=== PATIENT | female | born 1955 | race Caucasian/White ===

== ENCOUNTER → 2018-12-25 10:08 | Outpatient (CLI) | payer BC, SELFPAY ==
--- NOTE | 2018-12-25 10:11 | MM_ITS ---
MM Dig screening mamm BI w/CAD ORDERING PHYSICIAN : Sarah Ordoñez APRN PATIENT AGE: 63 years GENDER: Female COMPARISON: . Also July 19, 2017 stereotactic biopsy. Bilateral screening mammogram studies from May 17, 2017 with additional diagnostic views June 02, 2017. August 13, 2000 mammogram from [facility] INDICATION: ITS routine screening mammogram. No hormones. No new complaints. Previous stereotactic biopsies bilaterally. Previous cyst aspiration Family history. Sister with breast cancer age 67 TECHNIQUE: Standard CC and MLO images were obtained. R2 CAD reviewed. Additional axillary cc view bilateral FINDINGS: . Moderately dense slightly nodular character the breast mild heterogeneous character bilaterally with similar overall architecture. Mammography is slightly limited breast this character. RIGHT BREAST: Studies dating back to 2007 show numerous small calcifications at the superior right breast. Some very tiny calcifications were sampled with stereotactic biopsy 07/19/2017-with metallic clip from such at peripheral upper outer quadrant.-That biopsy revealed stromal fibrosis with microcalcifications. The others small dense fairly punctate calcifications at deep to the area sampled remained basically stable since that time with only scant if any increased density of these most likely benign punctate forms. This area Labeled A Area Labeled B.. Small benign stable appearing punctate calcifications, deep breast just medial to area A Calcifications at B best seen on cc views where as projected over the superior breast and area A on MLO view Area labeled C. On today's cc views at the deep deep breast towards 12:00 there is a reflection of some small faint calcifications. Again most likely this reflects benign process. These calcifications were noted in 2017 very slightly more evident on today's study specifically today's cc views. There seems to be a few additional tiny calcifications here. The again by far this most likely reflects benign process such esophagus history calcification with these calcifications do warrant additional magnification views to further evaluate. See joya images in PACS. LEFT BREAST: Previous stereotactic biopsy removed small grouping calcifications from lateral left breast--previously labeled X. Metallic MicroMark or here.. That biopsy was in 07/19/2017 and revealed fibroadenoma with microcalcifications. area labeled Y Stable area of dense overall benign-appearing calcifications deep breast labeled Y appear similar to the 2017 study with no significant change.. There is minimal nodularity here which appears stable as well...... however since the patient is returning, suggest spot views of this area to further evaluate and characterize these calcifications and this region. On coronal views minimal nodularity here on MLO view seem to dissipate on cc view and not of concern but if nodularity persists ultrasound may be warranted, after follow-up images reviewed ========IMPRESSION: The patient has numerous small benign calcifications at right breast > left , which create difficult mammogram evaluation ...... RIGHT BREAST ... Area labeled C warrants additional magnification spot views. Tiny calcifications are seen in 2 small adjacent groups seen here. They have been seen before but are slightly more evident today seen to have since slightly more numerous tiny calcifications on the cc view today Calcifications at AreaA & C appears stable with no new areas of concern. No previous biopsy at the far upper-outer quadrant right breast near [facility] ...... LEFT BREAST Fairly stable appearing grouping of calcifications deep breast labeled Y., However when Patient returns suggest magn
--- NOTE | 2018-12-25 10:12 | XR_ITS ---
XR DEXA axial skeleton HISTORY: ITS.REASON: OSTEOPOROSIS ORDERING PHYSICIAN: Sarah Ordoñez APRN PATIENT AGE: 63 years COMPARISON: None FINDINGS: The BMD measured at the Total Right femoral neck is 0.538 g/cm squared with a T score of -3.7. This is considered Osteoporotic according to the World Health Organization criteria. Fracture risk is High. Treatment is advised. IMPRESSION: Osteoporosis with high fracture risk. Treatment is advised. Suggest follow-up exam December 2019
== END ==
PROVIDERS: PCP Nurse Practitioner Family; Visit Provider Nurse Practitioner Family
DX: Z12.31 Encounter for screening mammogram for malignant neoplasm of breast (principal); M81.0 Age-related osteoporosis without current pathological fracture; Z13.820 Encounter for screening for osteoporosis
CPT/HCPCS: 77067; 77080

== ENCOUNTER → 2019-01-30 14:50 | Outpatient (CLI) | payer BC, SELFPAY ==
--- NOTE | 2019-01-30 14:55 | MM_ITS ---
MM Dig mamm BI DX w/CAD INDICATION: Follow-up abnormal screening study, microcalcifications ORDERING PHYSICIAN: Sarah Ordoñez APRN PATIENT AGE: 64 years COMPARISON: 12/25/2018, 06/02/2017, 05/17/2017 TECHNIQUE: Spot mag views are obtained of both breasts along ML views FINDINGS: There is very dense breast tissue bilaterally which could easily obscure an underlying breast lesion. Therefore, correlation with physical exam is of utmost importance. The calcifications previously identified in the deep central aspect of the left breast have a benign appearance. The calcifications labeled C on the screening mammogram are demonstrated.. These appear to be slightly increased in number with some pleomorphic calcifications. Other calcifications are stable. IMPRESSION: Mildly suspicious calcifications in the deep upper aspect of the right breast centrally in the posterior one third approximately 8 centimeters deep to the nipple.. Stereotactic biopsy suggested BI-RADS Category: 4 Suspicious Abnormality-Biopsy Considered RECOMMENDED FOLLOW-UP: BIO - BIOPSY RECOMMENDED (A letter has been sent to the patient regarding results of the study.)
== END ==
PROVIDERS: PCP Nurse Practitioner Family; Visit Provider Nurse Practitioner Family
DX: R92.8 Other abnormal and inconclusive findings on diagnostic imaging of breast (principal)
CPT/HCPCS: 77066

== ENCOUNTER → 2019-03-05 08:32 | Outpatient (CLI) | payer BC, SELFPAY ==
--- NOTE | 2019-03-05 09:00 | MM_ITS ---
MM stereotactic loc RT, MM clip placement RT ORDERING PHYSICIAN: Sarah Ordoñez APRN PATIENT AGE: 64 years Comparison: 01/30/2019 INDICATION: Abnormal mammogram with new right breast calcifications in the deep central aspect of the right breast superiorly. PROCEDURE: The patient was given 1 mg of Xanax, Lortab 5 mg, and analgesia and minor sedation. The patient was placed on the stereotactic table and the abnormality was localized in the most appropriate projection. The breast was prepped in the routine manner, with sterile prep and the overlying skin anesthetized. A 3 to 4 mm skin incision was performed and the 9 gauge Liquidus vacuum-assisted core biopsy needle was advanced to the region of the calcification. Pre- and post fire images were obtained. After adequate positioning relative to the calcifications was ensured, multiple biopsies were obtained in the region of the calcifications specifically. The core biopsies obtained were sent for specimen mammography. After the calcifications were indeed identified on the specimen mammogram, the procedure was terminated. A tiny titanium nonferromagnetic MicroMark was positioned through the mammotome needle into the biopsy site. Pathology: Focal atypical lobular hyperplasia. Fibrocystic changes with ductal microcalcifications. Postbiopsy mammogram: Very dense fibroglandular tissue once again noted. The previously noted suspicious calcifications in the deep upper aspect of the right breast are less numerous with focal biopsy changes at this region. A new clip is present in this area as well. IMPRESSION: Successful stereotactic biopsy of the right breast. Pathology is remarkable for focal atypical lobular hyperplasia. Excisional biopsy therefore suggested. Recommendations: Excisional biopsy with hook wire placement
== END ==
PROVIDERS: PCP Family Medicine; Visit Provider Nurse Practitioner Family
DX: R92.8 Other abnormal and inconclusive findings on diagnostic imaging of breast (principal)
CPT/HCPCS: 19081; 77065

== ENCOUNTER → 2021-01-28 08:05 | Outpatient (CLI) | payer MEDICARE, OTHER, SELFPAY ==
[2021-01-28 08:52] LABS: Basophils # 0.1 K/mm3 (0-0.2); Basophils % 1.2 % (0.1-2.0); Eosinophils # 0.4 K/mm3 (0.0-0.4); Eosinophils % 4.3 % (0.1-12.0); Hemoglobin 15.9 g/dL (12.2-16.2); Lymphocytes # 2.5 K/mm3 (0.7-4.5); Lymphocytes % 30.6 % (10-50); Mean Corpuscular HGB Conc 33.1 g/dL (31.8-35.4); Mean Corpuscular Hemoglobin 30.5 pg (27.0-31.2); Mean Corpuscular Volume 92.2 fl (81-99); Mean Platelet Volume 7.9 fl (7.4-10.4); Monocytes # 0.4 K/mm3 (0.1-1.0); Monocytes % 5.2 % (1.7-9.3); Neutrophils # 4.7 K/mm3 (1.8-7.8); Neutrophils % 58.6 % (37.0-80.0); Platelet Count 242 K/mm3 (142-424); Red Blood Count 5.21 M/mm3 (4.20-5.40); Red Cell Distribution Width 13.9 % (11.5-17.5)
[2021-01-28 09:05] LABS: Alanine Aminotransferase 19 U/L (12-78); Albumin Level 4.3 g/dl (3.5-5.0); Albumin/Globulin Ratio 1.7 (1.1-1.8); Alkaline Phosphatase 84 U/L (38-126); Aspartate Amino Transferase 24 U/L (14-36); Bilirubin,Total 0.7 mg/dl (0.2-1.3); Blood Urea Nitrogen 17 mg/dl (7-17); Calcium 9.4 mg/dl (8.4-10.2); Carbon Dioxide 28 mmol/L (22.0-30.0); Chloride 107 mmol/L (98-107); Chol/HDL Ratio 2.6 (1-3.5); Cholesterol 182 mg/dl (140-200); Estimated Glomerular Filt Rate 84 ml/min (>60); GFR (African American) 101 ML/MIN (>60); Globulin 2.6 g/dL (1.3-3.2); Glucose 110 mg/dl (74-100); HDL Cholesterol 70 mg/dl (40-60); Sodium 140 mmol/L (136-145); Total Protein,Serum 6.9 g/dl (6.3-8.2); Triglycerides 90 mg/dl (30-150); VLDL Cholesterol 18 mg/dL (0-40)
[2021-01-28 09:16] LABS: Direct LDL Cholesterol 90.74 mg/dL (100-129)
[2021-01-28 15:37] LABS: Hemoglobin A1C 5.5 % (4.0-6.0)
== END ==
PROVIDERS: Visit Provider Nurse Practitioner Family
DX: E78.5 Hyperlipidemia, unspecified (principal); M81.0 Age-related osteoporosis without current pathological fracture; Z13.1 Encounter for screening for diabetes mellitus; Z79.899 Other long term (current) drug therapy
CPT/HCPCS: 36415; 80053; 80061; 83036; 85025

== ENCOUNTER → 2021-02-02 10:31 | Outpatient (CLI) | payer MEDICARE, OTHER, SELFPAY ==
--- NOTE | 2021-02-02 10:37 | XR_ITS ---
PROCEDURE: XR DEXA AXIAL SKELETON CLINICAL HISTORY: OSTEOPOROSIS COMPARISON: CR DEXAAX XR DEXA axial skeleton from 12/25/2018 FINDINGS: The right hip BMD is 0.418 with a T-score of -3.9. The left hip BMD is 0.501 with a T-score of -3.6. The lumbar spine BMD is 0.693 with a T-score of -3.2. Previously the lowest bone density within the right femoral neck with a T-score -3.7 IMPRESSION: This patient is considered osteoporotic according to the World Health Organization criteria. Fracture risk is high. Treatment is advised. Based on these results a follow-up exam is recommended in 1 year. Dictated by: Adrian Xiong MD 02/03/2021 05:32 Adrian Xiong MD in [place] 02/03/2021 05:32
== END ==
PROVIDERS: PCP Family Medicine; Visit Provider Nurse Practitioner Family
DX: M81.0 Age-related osteoporosis without current pathological fracture (principal)
CPT/HCPCS: 77080

== ENCOUNTER 2021-03-22 10:50 | Day surgery (SDC) | payer MEDICARE, OTHER, SELFPAY ==
[2021-03-22 10:37] LABS: Coronavirus 19, PCR Not Detected (NotDetected); Influenza A, PCR Not Detected (NotDetected); Influenza B, PCR Not Detected (NotDetected)
[2021-03-22 12:18] VITALS: BP 139/94; PULSE 90; RESP 18; TEMP 37.4; O2SAT 98; BMI 21.4
--- NOTE | 2021-03-22 12:55 | P.PN_ITS ---
[facility] Anesthesia Checklist - Patient Identification Patient Identification: Arm Band - Structural Data Admitted From: Home Planned Operative Procedure/s: Colonoscopy Consent for Planned Operative Procedure(s) Verified: Yes - NPO Status Verified Time NPO: 00:00 - Additional verifications Anesthesia Reactions: No Hx Blood Transfusions: No Blood Transfusion Reaction: No - Airway Assessment C-Spine Mobility Assessed: Yes TMJ Mobility Assessed: Yes Dentition: Dentures-good fit - Neurological Assessment Level of Consciousness: Awake Hx Seizures: No Numbness or tingling in extremities: No - Anesthesia Plan Anesthesia Risk discussed: Yes Anesthesia Plan: Verified ASA Class: II Anesthesia Type: MAC [facility] History I have reviewed the patient's past medical history: Yes Medical History: Reports:: Hyperlipidemia Denies:: Cancer, Diabetes Mellitus Type 1, Diabetes Mellitus Type 2, Internal Pacemaker, Lung Disease, MRSA, Seizures *Have you ever received a pneumonia vaccine?: Yes *Have you received a flu vaccine this season?: Yes Other Medical History: Denies: Blood Transfusion Reaction Anesthesia experience/problems:: None Laterality Cases: Bilateral: Lumpectomy Other Surgeries: No: Pacemaker Amputation: No Fractures: No - *Social History Last grade of school completed: Some college Smoking Status: Current every day smoker Tobacco Type: cigarettes # Packs/Day (cigarettes): 2 Alcohol Intake: never Substance Use Type: denies use *Occupational Status:: employed Housing: house Household Members: spouse *Travel in the last 8 weeks: Inside the [facility] Family Hx:: Cancer, Coronary Artery Disease, Diabetes, Heart Attack, Hyperlipidemia, Hypertension, Stroke
--- NOTE | 2021-03-22 13:42 | P.PCN_ITS ---
[facility] Procedure Note Procedure Note:: Colonoscopy Procedure Report: Colonoscopy with cold snare polypectomy Endoscopist: Surendra Gonzales II, MD Referring physician: SHARMAINE Roldan Date of Procedure: March 22, 2021 Equipment: Olympus 190 variable stiffness pediatric colonoscope Sedation: MAC sedation Indication: Mrs. Dickson is a 66-year-old female who underwent screening colonoscopy on December 28, 2018. She had multiple large adenomatous polyps (large 27 mm pedunculated rectosigmoid polyp as well as other multiple medium and large tubular adenomas (9 mm, 11 mm, 16mm and 27 mm)) which were removed. The patient reports no abdominal pain, weight loss, change in her bowel habits or rectal bleeding. She does state that her paternal uncle had colon cancer. Procedure: Prior to the procedure, a history and physical exam was performed, and patient's medications and allergies were reviewed. The risks, benefits and alternatives of the sedation and procedure were discussed with the patient. All questions were answered and informed consent was obtained. The patient was brought to the procedure room. Patient identification and proposed procedure were verified by the physician and the nurse. The patient was placed in a left lateral decubitus position and the scope was passed under direct vision. Throughout the procedure, the patient's blood pressure, pulse, and oxygen saturations were monitored continuously. The colonoscopy was accomplished without difficulty. The patient tolerated the procedure well. Findings: On digital rectal examination there was normal rectal tone. There were no external hemorrhoids. The colonoscope was introduced through the anal canal to the rectum and advanced to the cecum. The ileocecal valve and appendiceal orifice were identified. The scope was advanced a short distance into the ileum which appeared grossly normal. The scope was then withdrawn into the colon. The cecum, ascending and transverse colon and mucosa were grossly normal. There were 2 colon polyps in the transverse colon (5 and 7 mm) which were both removed via cold snare polypectomy. There were extensive scattered diverticuli throughout the descending and sigmoid colon (LEFT colon). The rectum itself was normal. Upon retroflexion within the rectum there were grade 1-2 internal hemorrhoids. The preparation was fair throughout with [place] Preparation Score of 7 out of 9. The cecal time was 13 minutes. Impression: 1. Transverse colon polyps x2 2. Extensive left-sided diverticulosis 3. Grade 1-2 internal hemorrhoids Plan: I will follow up the polyp pathology and recommend repeat colonoscopy again in 5 years based upon the patient's prior advanced adenomatous polyps and present polyp histology. I would encourage bulking fiber supplementation on a long-term daily maintenance basis.
[2021-03-22 13:45] VITALS: BP 99/67; PULSE 86; RESP 18; TEMP 36.2; O2SAT 94
[2021-03-22 13:55] VITALS: BP 113/71; PULSE 70; RESP 18; TEMP 36.2; O2SAT 93
[2021-03-22 14:05] VITALS: BP 124/85; PULSE 73; RESP 18; TEMP 36.2; O2SAT 94
[2021-03-22 14:15] VITALS: BP 132/82; PULSE 66; RESP 18; TEMP 36.2; O2SAT 95
[2021-03-22 14:49] VITALS: BP 138/79; PULSE 63; RESP 18; TEMP 36.2; O2SAT 96
== END 2021-03-22 14:49 | disposition home or self-care (01) ==
LOC: OUTP 10:52
PROVIDERS: PCP Nurse Practitioner Family; Visit Provider Internal Medicine Gastroenterology
PROC: 0DJD8ZZ Inspection of Lower Intestinal Tract, Via Natural or Artificial Opening Endoscopic (ICD-10-PCS; CPT 45378; principal; 2021-03-22 13:00)
DX: Z86.010 Personal history of colon polyps (principal); K63.5 Polyp of colon; K57.30 Diverticulosis of large intestine without perforation or abscess without bleeding; K64.0 First degree hemorrhoids; E78.5 Hyperlipidemia, unspecified; Z72.0 Tobacco use; Z82.3 Family history of stroke; Z82.49 Family history of ischemic heart disease and other diseases of the circulatory system; Z83.438 Family history of other disorder of lipoprotein metabolism and other lipidemia; Z83.3 Family history of diabetes mellitus; Z84.89 Family history of other specified conditions; Z79.899 Other long term (current) drug therapy
CPT/HCPCS: 45385; 88305; U0003

== ENCOUNTER 2021-08-27 08:55 | Emergency (ER) | payer MEDICARE, OTHER, SELFPAY ==
[2021-08-27 09:02] VITALS: BP 126/82; PULSE 109; RESP 16; TEMP 36.9; O2SAT 94; BMI 22.3
--- NOTE | 2021-08-27 09:04 | XR_ITS ---
PROCEDURE: XR FOOT LT MIN 3V CLINICAL INDICATION: Foot pain COMPARISON: No exams were available for comparison FINDINGS: Cortical irregularity involves the distal aspect the proximal 3rd phalanx consistent with a a fracture with 1 2 mm lateral displacement of the distal fracture fragment. There is minimal lateral angulation the 3rd toe. No other significant anomalies evident. IMPRESSION: Minimally offset fracture involves the distal aspect of the proximal 3rd phalanx age indeterminate Dictated by: Adrian Xiong MD 08/27/2021 09:22 Adrian Xiong MD in [place] 08/27/2021 09:22
--- NOTE | 2021-08-27 09:11 | HMH.EDGENADL ---
ED Disposition Clinical Impression: Phalanges fracture, foot Disposition: Home, Self-Care Condition on Discharge: Fair Referrals: Marty Alonzo MD [Primary Care Provider] - - Critical Care Critical Care Time: No Attestation: On 08/27/21, the high probability of a clinically significant, sudden or life threatening deterioration of the following system(s) required my full and direct attention, intervention and personal management. The time I documented below is in addition to time spent performing reported procedures but includes the following listed in this critical care notation. Medical Decision Making - Medical Records Medical records reviewed: Yes: I reviewed the patient's medical records. - Moris Inquiry Pt receiving controlled substance: No Moris was queried for this patient: No Vital Signs: 08/27/21 09:02 Temperature 98.5 F Temperature Source Oral Pulse Rate [Left Radial] 109 H Respiratory Rate 16 Blood Pressure [Right Arm] 126/82 Blood Pressure Mean [Right Arm] 96 02 Sat by Pulse Oximetry 94 L Oxygen Delivery Method Room Air - Lab Data Lab results reviewed: Yes: I reviewed the patient's lab results. Medical Decision Narrative: Patient is a 66-year-old female has medical history presenting to the ED for left foot pain. Patient is awake, alert, not in acute distress. Patient is medically stable, afebrile. X-rays of the left foot was performed. X-rays remarkable for fracture of the proximal third phalanx with mild displacement, age indetermined. She was placed in a hard soled boot. Patient is given strict return precautions and follow-up instructions. General Adult HPI - General Chief complaint: PAIN Stated complaint: left foot middle toe injury Time Seen by Provider: 08/27/21 09:11 Mode of Arrival: Ambulatory Limitations: No Limitations Description of Symptoms (Recalled from ER Triage Doc. by RN): pt to ed c/o left middle toe pain. pt states she stubbed her toe on a wooden chest this morning and is now experiencing pain. - History of Present Illness HPI narrative: Patient is a 66-year-old female with no past medical history presenting to the ED for left foot pain. Patient said that she was walking when she her left foot on a chest. Patient felt immediate pain in her and presented to the ED for an evaluation. Patient states that this was a mechanical injury. She did not have any dizziness, loss of consciousness, denies any head trauma, denies any anticoagulation. - Related Data Home Medications Medication Instructions Recorded Confirmed Atorvastatin Calcium [Atorvastatin 40 mg PO DAILY 12/25/18 03/22/21 40mg Tab] Cyanocobalamin (Vitamin B-12) 1,000 mcg PO DAILY 12/25/18 03/22/21 [Vitamin B-12] Ergocalciferol (Vitamin D2) 400 unit PO DAILY 12/25/18 03/22/21 [Vitamin D] Levothyroxine Sodium 112 mcg PO DAILY 12/25/18 03/22/21 [Levothyroxine 150mcg (0.15mg) Tab] Alendronate Sodium [Fosamax 70mg 70 mg PO WEEKLY 03/22/21 03/22/21 Tablet] Aspirin [Adult Aspirin Regimen] 81 mg PO DAILY 03/22/21 03/22/21 Allergies Allergy/AdvReac Type Severity Reaction Status Date / Time venom-honey bee Allergy Severe SWELLING Verified 03/22/21 12:15 [facility] History - Hepatitis A Screen Drug use history?: No High risk sexual behaviors?: No History of sexually transmitted infection?: No Currently employed?: No Childcare worker?: No Do you have indoor plumbing?: Yes Do you have electricity?: Yes Attestation statement:: This patient has been screened for Hepatitis A risk factors. I have reviewed the patient's past medical history: Yes Medical History: Reports:: Hyperlipidemia Denies:: Cancer, Diabetes Mellitus Type 1, Diabetes Mellitus Type 2, Internal Pacemaker, Lung Disease, MRSA, Seizures Other Medical History: Denies: Blood Transfusion Reaction Laterality Cases: Bilateral: Lumpectomy Other Surgeries: No: Pacemaker Amputation: No Fractures: No - Social History S
[2021-08-27 10:06] VITALS: BP 111/72; PULSE 91; RESP 16; TEMP 36.9; O2SAT 96
== END 2021-08-27 10:08 | disposition home or self-care (01) ==
PROVIDERS: Emergency Provider Emergency Medicine; PCP Family Medicine
DX: S92.505A Nondisplaced unspecified fracture of left lesser toe(s), initial encounter for closed fracture (principal); W22.03XA Walked into furniture, initial encounter; Y92.019 Unspecified place in single-family (private) house as the place of occurrence of the external cause; F17.210 Nicotine dependence, cigarettes, uncomplicated; E78.5 Hyperlipidemia, unspecified
CPT/HCPCS: 29515; 73630; 99283

== ENCOUNTER → 2022-02-15 12:21 | Outpatient (CLI) | payer MEDICARE, OTHER, SELFPAY ==
--- NOTE | 2022-02-15 12:28 | MM_ITS ---
PROCEDURE INFORMATION: Exam: MG Bilateral Screening 3D Mammography Exam date and time: 02/15/2022 12:54 PM Age: 67 years old Clinical indication: Screening examination. Family history of breast cancer TECHNIQUE: Imaging protocol: Bilateral Screening tomosynthesis and 2D mammography including computer-aided detection (CAD) when performed. COMPARISON: 1. MG MAMMO DIAGNOSTIC DIGITAL TOMOSYNTHESIS LEFT W CAD 12/24/2020 10:06 AM 2. MG MAMMO POST CLIP PLACEMENT LEFT 06/22/2020 11:32 AM 3. MG MAMMO STEREOTACTIC BREAST BIOPSY INITIAL W WO DEVICE 06/22/2020 11:13 AM 4. SD MAMMO BREAST SPECIMEN 06/22/2020 11:17 AM FINDINGS: MAMMOGRAPHY: Breast composition: The breast tissue is extremely dense, which lowers the sensitivity of mammography. Mass: None. Architectural distortion: No new or suspicious architectural distortion. Calcifications: No new or suspicious calcifications are present Asymmetric density: No new or suspicious asymmetric density is present Skin thickening: None. Axillary adenopathy: None. Other findings: Stable postoperative findings are present bilaterally. IMPRESSION: No mammographic evidence of malignancy. Recommend annual screening mammography unless otherwise clinically indicated. ASSESSMENT: BI-RADS category 2: Benign
== END ==
PROVIDERS: PCP Family Medicine; Visit Provider Nurse Practitioner Family
DX: Z12.31 Encounter for screening mammogram for malignant neoplasm of breast (principal)
CPT/HCPCS: 77063; 77067

== ENCOUNTER → 2023-02-21 08:04 | Outpatient (CLI) | payer MEDICARE, OTHER, SELFPAY ==
--- NOTE | 2023-02-21 08:09 | MM_ITS ---
PROCEDURE INFORMATION: Exam: MG Bilateral Screening 3D Mammography Exam date and time: 02/21/2023 8:01 AM Age: 68 years old Clinical indication: Screening examination TECHNIQUE: Imaging protocol: Bilateral Screening tomosynthesis and 2D mammography including computer-aided detection (CAD) when performed. COMPARISON: 1. MG MM DIG SCREENING MAMM BI W/CAD 02/15/2022 12:54 PM 2. MG MAMMO DIAGNOSTIC DIGITAL TOMOSYNTHESIS LEFT W CAD 12/24/2020 10:06 AM 3. MG MAMMO POST CLIP PLACEMENT LEFT 06/22/2020 11:32 AM 4. MG DIGMAMMS MAMMOGRAM SCREEN-SHRIMP PEELER N/C 08/13/2008 9:33 AM FINDINGS: MAMMOGRAPHY: Breast composition: The breast tissue is extremely dense, which lowers the sensitivity of mammography. Mass: None. Architectural distortion: No new or suspicious architectural distortion. Calcifications: No new or suspicious calcifications are present Asymmetric density: No new or suspicious asymmetric density is present Skin thickening: None. Axillary adenopathy: None. IMPRESSION: No mammographic evidence of malignancy. Recommend annual screening mammography unless otherwise clinically indicated. ASSESSMENT: BI-RADS category 1: Negative
--- NOTE | 2023-02-21 08:10 | CT_ITS ---
FINAL REPORT CLINICAL HISTORY: H/O TOBACCO USE, current smoker for last 49 years, smokes 1.5-2 packs per day, copd COMPARISON: None FINDINGS: CT CHEST LOW DOSE SCREENING HISTORY: Screening exam for lung cancer. Current smoker, 75 pack year smoking history DOSE: CTDIvol: 2.9 mGy, DLP: 97.95 mGy*cm COMPARISON: None . TECHNIQUE: Axial CT without IV contrast administration using low dose protocol FINDINGS: There are moderate changes of centrilobular emphysema present. No focal infiltrates are visualized. No pulmonary nodules are present.. No pulmonary lesions are seen suspicious for neoplasm. No pleural or pericardial effusion is seen . No adenopathy or mass lesion is present . The adrenal glands bilaterally are generally prominent in size, a finding that may represent adrenal hyperplasia. IMPRESSION: Moderate changes of centrilobular emphysema. Appearance of adrenal glands bilaterally suggestive for adrenal hyperplasia. LUNG RADS CATEGORY 1 S RECOMMENDATION: 12 month LDCT follow up Reviewed, Interpreted and Dictated by Mauricio Tijerina MD Transcribed by Amy Roche Authenticated and [facility]
--- NOTE | 2023-02-21 08:10 | XR_ITS ---
FINAL REPORT TECHNIQUE: Bone densitometry calculations of the lumbar spine and left hip were obtained. CLINICAL HISTORY: osteoporosis FINDINGS: Using L1-4, the bone mineral density of the spine is 0.718 g/cm2, corresponding to T-score of -3.0. Using the left hip, the bone mineral density of the femoral neck is 0.558 g/cm2, corresponding to a T-score of -3.1. Using the right hip, the bone mineral density of the femoral neck is 0.530 g/cm2, corresponding to a T-score of -3.4 NOTE: T-score: Standard deviation compared with peak bone mass of young adult mean. *Following the recommendations of the International Society of Bone densitometry, classification of hip BMD is based on the lower of two T-scores; total hip or femoral neck. IMPRESSION: Diminished bone mineral density of the lumbar spine and left hip consistent with osteoporosis. FRAX was not reported because some of the T-scores are at or below -2.5. Reviewed, Interpreted and Dictated by Mauricio Tijerina MD Transcribed by Sarah Owen Authenticated and [facility]
== END ==
PROVIDERS: PCP Family Medicine; Visit Provider Nurse Practitioner Family
DX: Z12.31 Encounter for screening mammogram for malignant neoplasm of breast (principal); M81.0 Age-related osteoporosis without current pathological fracture; Z87.891 Personal history of nicotine dependence; Z12.2 Encounter for screening for malignant neoplasm of respiratory organs
CPT/HCPCS: 71271; 77063; 77067; 77080

== ENCOUNTER 2023-09-26 10:49 | Day surgery (SDC) | payer MEDICARE, OTHER, SELFPAY ==
[2023-09-26] MEDS: CYCLOPENTOLATE 2% OPHTH SOLN 2ML BOTTLE OP ×3 (11:05→11:07)
[2023-09-26] MEDS: TETRACAINE 0.5% OPTH SOL 15ML OP ×3 (11:05→11:06)
[2023-09-26] MEDS: PHENYLEPHRINE 2.5% OPHTH SOLN 2ML 0.0500000000000000028 ML OP ×3 (11:06→11:07)
[2023-09-26 11:14] VITALS: BP 129/77; PULSE 77; RESP 18; TEMP 36.6; O2SAT 94; BMI 22.3
[2023-09-26 11:55] VITALS: BP 153/81; PULSE 67; RESP 17; O2SAT 97
[2023-09-26] MEDS: MIDAZOLAM 2MG/2ML VIAL 1 MG IV (11:55)
[2023-09-26 12:00] VITALS: BP 140/83; PULSE 75; RESP 16; O2SAT 96
[2023-09-26] MEDS: TOBRAMYCIN/DEX OPTH SUSP 2.5ML OP (12:01)
[2023-09-26] MEDS: LIDOCAINE 1% PF 2ML AMPULE 2 ML IJ (12:01)
[2023-09-26] MEDS: TIMOLOL 0.5% OPTH SOLN 5ML OP (12:01)
[2023-09-26 12:05] VITALS: BP 138/83; PULSE 73; RESP 17; O2SAT 97
[2023-09-26 12:11] VITALS: BP 144/73; PULSE 65; RESP 16; TEMP 36.5; O2SAT 97
[2023-09-26 12:18] VITALS: BP 144/73; PULSE 65; RESP 16; TEMP 36.5; O2SAT 97
== END 2023-09-26 12:19 | disposition home or self-care (01) ==
PROVIDERS: PCP Family Medicine; Visit Provider Ophthalmology
PROC: (CPT 66984; principal; 2023-09-26 14:30)
DX: H25.812 Combined forms of age-related cataract, left eye (principal)
CPT/HCPCS: 66984; V2632

== ENCOUNTER 2023-10-17 08:38 | Day surgery (SDC) | payer MEDICARE, OTHER, SELFPAY ==
[2023-10-13 12:08] VITALS: BMI 22.3
[2023-10-17 09:15] VITALS: BP 149/101; PULSE 72; RESP 18; TEMP 36.6; O2SAT 96
[2023-10-17] MEDS: TETRACAINE 0.5% OPTH SOL 15ML OP ×3 (09:15→09:22)
[2023-10-17] MEDS: PHENYLEPHRINE 2.5% OPHTH SOLN 2ML 0.0500000000000000028 ML OP ×3 (09:15→09:22)
[2023-10-17] MEDS: CYCLOPENTOLATE 2% OPHTH SOLN 2ML BOTTLE OP ×3 (09:15→09:22)
[2023-10-17 10:07] VITALS: BP 138/89; PULSE 79; RESP 17; O2SAT 98
[2023-10-17 10:12] VITALS: BP 147/82; PULSE 76; RESP 16; O2SAT 96
[2023-10-17] MEDS: MIDAZOLAM 2MG/2ML VIAL 1 MG IV (10:14)
[2023-10-17] MEDS: TOBRAMYCIN/DEX OPTH SUSP 2.5ML OP (10:14)
[2023-10-17] MEDS: TIMOLOL 0.5% OPTH SOLN 5ML OP (10:15)
[2023-10-17] MEDS: SODIUM CHLORIDE 0.9% 10ML FLUSH SYRINGE 10 ML IV (10:15)
[2023-10-17] MEDS: LIDOCAINE 1% PF 2ML AMPULE 2 ML IJ (10:15)
[2023-10-17 10:17] VITALS: BP 164/86; PULSE 78; RESP 16; O2SAT 96
[2023-10-17 10:23] VITALS: BP 131/74; PULSE 72; RESP 16; TEMP 36.3; O2SAT 96
== END 2023-10-17 10:35 | disposition home or self-care (01) ==
PROVIDERS: PCP Family Medicine; Visit Provider Ophthalmology
PROC: (CPT 66984; principal; 2023-10-17 11:30)
DX: H25.811 Combined forms of age-related cataract, right eye (principal)
CPT/HCPCS: 66984; V2632

== ENCOUNTER 2024-06-28 13:35 | Outpatient (CLI) | payer MEDICARE, OTHER, SELFPAY ==
--- NOTE | 2024-06-28 13:39 | MM_ITS ---
PROCEDURE INFORMATION: Exam: MG Bilateral Screening 3D Mammography Exam date and time: 06/28/2024 1:30 PM Age: 69 years old Clinical indication: Screening examination. History of excisional procedure with precancerous cells 4 years ago. Her sister had breast cancer at age 67. TECHNIQUE: Imaging protocol: Bilateral Screening tomosynthesis and 2D mammography including computer-aided detection (CAD) when performed. COMPARISON: 1. MG MM DIG SCREENING MAMM BI W/CAD 02/21/2023 8:01 AM 2. MG MM DIG SCREENING MAMM BI W/CAD 02/15/2022 12:54 PM 3. MG MAMMO DIAGNOSTIC DIGITAL TOMOSYNTHESIS LEFT W CAD 12/24/2020 10:06 AM 4. MG MAMMO POST CLIP PLACEMENT LEFT 06/22/2020 11:32 AM FINDINGS: MAMMOGRAPHY: Breast composition: The breasts are extremely dense, which lowers the sensitivity of mammography. Mass: None. Architectural distortion: None. Calcifications: Questionable grouping of calcifications seen in the left lateral breast posterior 3rd, CC view only. Asymmetric density: None. Skin thickening: None. Axillary adenopathy: None. IMPRESSION: Patient will be recalled for left diagnostic mammography with magnification view in CC and full field lateral or MLO in the more posterior aspect of the breasts for further evaluation of questionable calcification. Given the reported risk factors coupled with the patient's breast density, a breast cancer risk assessment may prove useful for further evaluation. ASSESSMENT: BI-RADS Category 0: Incomplete: Need Additional Imaging Evaluation.
--- NOTE | 2024-06-28 13:39 | CT_ITS ---
FINAL REPORT TECHNIQUE: Thin section axial images were obtained from the lung apices to the upper abdomen by computed tomography. Reformatted images were obtained and reviewed. This study was performed with techniques to keep radiation doses al low as reasonably achievable (ALARA). Individualized dose reduction techniques using automated exposure control or adjustment of mA and/or kV according to the patient's size were employed. CLINICAL HISTORY: .CURRENT SMOKER 2PPD X 50 YEARS COMPARISON: 02/21/2023 FINDINGS: CHEST CT LOW DOSE 69-year-old female, current smoker, [id number] history. CTDI vol (mGy): 2.9 DLP (mGy-cm): 100.29 There is no axillary adenopathy. There is no mediastinal or hilar mass or adenopathy. The heart is normal in size. 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 Moderate coronary artery calcifications are again noted. There is no pericardial or pleural effusion. There is moderate emphysema and mild pulmonary scarring. Lung window images demonstrate 3 small nodules in the posterior right upper lobe, the largest measuring 4 mm in size, not seen on the prior exam of 2022. Their proximity suggests an inflammatory etiology. These are best seen on image numbers 40 and 41 of series 3. Limited images of the upper abdomen once again demonstrate bilateral adrenal adenomas.. IMPRESSION: Lung-RADS category 2. Recommend 12 month follow up low dose chest CT. Reviewed, Interpreted and Dictated by Manny Damico III, MD Transcribed by Amy Roche Authenticated and . [facility]
== END 2024-06-28 23:59 | disposition home or self-care (01) ==
LOC: RAD 13:37
PROVIDERS: PCP Nurse Practitioner Family; Visit Provider Nurse Practitioner Family
DX: Z87.891 Personal history of nicotine dependence (principal); Z12.31 Encounter for screening mammogram for malignant neoplasm of breast
CPT/HCPCS: 71271; 77063; 77067

== ENCOUNTER 2024-07-24 13:03 | Outpatient (CLI) | payer MEDICARE, OTHER, SELFPAY ==
--- NOTE | 2024-07-24 13:06 | MM_ITS ---
PROCEDURE INFORMATION: Exam: MG Left Diagnostic Breast Tomosynthesis Exam date and time: 07/24/2024 1:06 PM Age: 69 years old Clinical indication: Recall on the basis of screening mammogram 06/28/2024 for further evaluation of questionable grouping of calcifications seen in the left lateral breast posterior 3rd, CC view only. TECHNIQUE: Imaging protocol: Left Diagnostic tomosynthesis and 2D mammography including computer-aided detection (CAD) when performed. Unilateral or bilateral exam. COMPARISON: 1. MG MM DIG SCREENING MAMM BI W/CAD 06/28/2024 1:30 PM 2. MG MM DIG SCREENING MAMM BI W/CAD 02/21/2023 8:01 AM 3. MG MM DIG SCREENING MAMM BI W/CAD 02/15/2022 12:54 PM 4. MG MAMMO DIAGNOSTIC DIGITAL TOMOSYNTHESIS LEFT W CAD 12/24/2020 10:06 AM FINDINGS: MAMMOGRAPHY: Breast composition: The breasts are extremely dense, which lowers the sensitivity of mammography based on the most recent screening mammogram report. Breast mammogram findings: Magnification views of recalled calcifications in the very posterior outer breast are demonstrated in the upper breast (with motion in the MLO projection), which appear coarse particularly in the craniocaudad view, may not have been imaged on prior studies due to very posterior location. Magnification views demonstrate grouping of a few punctate calcifications in the upper outer quadrant posterior 3rd - similar to non magnified MLO view 02/15/2022 and 02/21/2023. IMPRESSION: Probably benign left breast calcifications, suggest six-month follow-up left diagnostic mammography with magnification views unless otherwise clinically indicated. ASSESSMENT: BI-RADS Category 3: Probably benign.
== END 2024-07-24 23:59 | disposition home or self-care (01) ==
LOC: RAD 13:04
PROVIDERS: PCP Nurse Practitioner Family; Visit Provider Nurse Practitioner Family
DX: R92.8 Other abnormal and inconclusive findings on diagnostic imaging of breast (principal)
CPT/HCPCS: 77061; 77065; G0279

== ENCOUNTER 2025-01-08 13:15 | Outpatient (CLI) | payer MEDICARE, OTHER, SELFPAY ==
--- NOTE | 2025-01-08 13:55 | MM_ITS ---
PROCEDURE INFORMATION: Exam: MG Left Diagnostic Breast Tomosynthesis Exam date and time: 01/08/2025 1:55 PM Age: 70 years old Clinical indication: Follow-up from prior for probably benign left breast calcifications. TECHNIQUE: Imaging protocol: Left Diagnostic tomosynthesis and 2D mammography including computer-aided detection (CAD) when performed. Unilateral or bilateral exam. COMPARISON: 1. MG MM DIG MAMM DX UNILAT LT CAD 07/24/2024 1:06 PM 2. MG MM DIG SCREENING MAMM BI W/CAD 06/28/2024 1:30 PM FINDINGS: MAMMOGRAPHY: Breast composition: The breasts are extremely dense, which lowers the sensitivity of mammography. Breast mammogram findings: Left breast magnification and full field tomosynthesis views were obtained. Stable grouped punctate calcifications upper-outer left breast middle to posterior depth. These are these are unchanged since prior spanning roughly 0.4 cm. Elsewhere, there are no suspicious masses or calcifications in the partially visualized breast. No abnormal lymph nodes in the partially visualized axilla. IMPRESSION: Left breast calcifications are unchanged since 07/24/2024 and probably benign. Recommend six-month follow-up bilateral diagnostic mammogram including left breast magnification views to ensure stability. ASSESSMENT: BI-RADS Category 3: Probably benign.
== END 2025-01-08 23:59 | disposition home or self-care (01) ==
LOC: RAD 13:16
PROVIDERS: PCP Nurse Practitioner Family; Visit Provider Nurse Practitioner Family
DX: R92.8 Other abnormal and inconclusive findings on diagnostic imaging of breast (principal)
CPT/HCPCS: 77061; 77065; G0279